=== PATIENT | female | born 1970 | race Caucasian/White ===

== ENCOUNTER 2022-12-08 07:28 | Emergency (ER) | payer OTHER ==
[~2022-12-08] VITALS: Ht 160 cm; Wt 59.0 kg
== END 2022-12-08 10:59 | disposition home or self-care (01) ==
LOC: ER 07:28
DX: S30.0XXA Contusion of lower back and pelvis, initial encounter (principal); W10.8XXA Fall (on) (from) other stairs and steps, initial encounter; Y93.89 Activity, other specified; Y92.018 Other place in single-family (private) house as the place of occurrence of the external cause; Y99.9 Unspecified external cause status; M54.50 Low back pain, unspecified; M13.88 Other specified arthritis, other site

== ENCOUNTER → 2023-06-05 | Outpatient (CLI) | payer OTHER ==
[~2023-06-05] MED LIST: LIDODERM1 EACH TOP
== END | disposition home or self-care (01) ==
LOC: RAD 12:45
PROVIDERS: ATTEND Physical Medicine & Rehabilitation
DX: S92.342A Displaced fracture of fourth metatarsal bone, left foot, initial encounter for closed fracture (principal)

== ENCOUNTER 2023-06-13 07:47 | Outpatient (CLI) | payer OTHER | END 2023-06-13 07:49 | disposition home or self-care (01) | LOC: RAD 07:47 | PROVIDERS: ATTEND Orthopaedic Surgery | DX: S92.345A Nondisplaced fracture of fourth metatarsal bone, left foot, initial encounter for closed fracture (principal) ==

== ENCOUNTER → 2023-08-23 | Emergency (ER) | payer OTHER ==
[~2023-08-23] VITALS: Ht 160 cm; Wt 57.2 kg
[~2023-08-23] MED LIST changes: +METHOTREXA25 MG/1 M5 SUBCUTANEO
== END | disposition home or self-care (01) ==
LOC: ER 07:37
DX: J06.9 Acute upper respiratory infection, unspecified (principal)

== ENCOUNTER 2024-12-08 12:23 | Outpatient (CLI) | payer OTHER | END 2024-12-08 12:31 | disposition home or self-care (01) | LOC: TOM 12:23 | PROVIDERS: ATTEND Orthopaedic Surgery | DX: S52.572A Other intraarticular fracture of lower end of left radius, initial encounter for closed fracture (principal) ==